=== PATIENT | female | born 2005 | race Caucasian/White ===

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

== ENCOUNTER 2025-06-15 14:59 | Emergency (ER) | payer OTHER, BC ==
[~2025-06-15] VITALS: Ht 165.1 cm; Wt 59.0 kg
[2025-06-15] MEDS ORDERED: DEPO-ESTRAD5 MG/1 ML IM (15:26)
[2025-06-15] MEDS ORDERED: Ondansetron4 MG PO (17:01)
[2025-06-15] MEDS ORDERED: Ondansetron Hydrochloride 4 MG TAB SL ONE (17:05)
== END 2025-06-15 17:30 | disposition home or self-care (01) ==
LOC: ED 14:59
DX: S00.83XA Contusion of other part of head, initial encounter (principal); W22.09XA Striking against other stationary object, initial encounter; Y93.89 Activity, other specified; Y92.89 Other specified places as the place of occurrence of the external cause; Y99.0 Civilian activity done for income or pay